=== PATIENT | male | born 1995 | race African-American/Black ===

== ENCOUNTER → 2019-04-20 | Outpatient (CLI) | payer OTHER ==
--- NOTE | 2019-04-20 15:23 | PAIN ---
DATE OF SERVICE: 04/20/2019 INITIAL CONSULTATION FOR PAIN CLINIC CHIEF COMPLAINT: Low back and right lower extremity pain. HISTORY OF PRESENT ILLNESS: This is a 23-year-old male, who presents with history of pain in the low back, his right lower extremity mostly in the anterior thigh and lateral thigh, but across the low back bilaterally. The patient reports it has been going on since about November 2018, not a result of any specific injury or action that he is aware of. He is active duty ; he also plays basketball actively, and with running and jogging. He has noticed the pain is much worse with the walking and standing, jogging. Now, he has been decreasing his activity as much as possible. Has not been playing basketball recently. He did have physical therapy, which was from December to January 2019, which did help decrease the pain by about 30-40%. The patient reports the pain is still persistent. He is still doing the stretching and strengthening exercises with his low back. The patient reports the pain is throbbing and constant across the back and shooting and radiating into the right leg. The patient rates his disability rating from 0-10, 10 being the worst, is a 2 with family home responsibilities, recreation, 1 with social activity, occupation and sexual behavior, self-care and 2 with life support activities. The patient did have a CT scan, awaiting results of that at the time of this dictation, but reported from his referring physician as having a disk bulging and spinal stenosis at L2-L3, L3-L4, and L4-L5. The patient reports no loss of motor function with significant fatigability more on the right leg than the left with active running and the basketball. The patient has tried cyclobenzaprine, is also taking ibuprofen, both of these do help, but only to about 20-30%. PAST MEDICAL HISTORY: Significant for no major medical problems or conditions. He has been in good health. PAST SURGICAL HISTORY: No previous surgeries. ALLERGIES: The patient has no known drug allergies. FAMILY HISTORY: Significant for no major medical conditions or situations that he is aware of. SOCIAL HISTORY: The patient does not drink alcohol, does not smoke. Denies any illegal, illicit, or recreational drugs, is a single. He is active duty. Lives locally in [place], [place]. REVIEW OF SYSTEMS: The patient's review of systems is positive for those items mentioned in history of present illness. All systems reviewed and otherwise negative. It is complete, full and well documented on the patient's chart. PHYSICAL EXAMINATION: VITAL SIGNS: The patient's blood pressure is 135/77, pulse 63, respirations 18, temperature 97.9 degrees Fahrenheit, height is 5 feet 10 inches, weight is 156 pounds. GENERAL: The patient is awake, alert, and oriented, appropriate, very pleasant demeanor. HEENT: Head is normocephalic, atraumatic. Extraocular movements are intact and symmetrical. Oral cavity: Mucous membranes moist and pink. Dentition is intact. NECK: Shows anterior throat supple without palpable lymphadenopathy noted. Swallow reflex symmetrical. CHEST: Shows normal on inspection. Breath sounds are clear to auscultation bilaterally. HEART: Shows S1, S2 clear. No murmurs auscultated. ABDOMEN: Soft, nontender, nondistended. No palpable organomegaly is noted. No rebound or guarding demonstrated. BACK: Shows spine grossly in the midline. Normal appearing thoracic kyphosis, cervical lordotic curvature, and thoracic kyphotic curvature. The patient shows good rotational motion of the lumbar spine, both laterally as well as extension and flexion without significant difficulty, greater than 10 degrees right and left as well as extension greater than 10 degrees, forward flexion 45 degrees without significant pain reported. Paraspinous musculature shows symmetrical on inspection, on palpation shows some mild tenderness, more on the left than the right in the low and mid lumbar distribution, but without specific asymmetry or trigger points and without radiation. EXTREMITIES: The patient's lower extremities show deep tendon reflexes 2+ in the patellar, 1+ tendo-calcaneus tendons. Motor exam is strong with 5/5 dorsiflexion, extension on the left, and 4/5 on the right, quadriceps and hamstring flexion, however, is 5/5 and equal bilaterally. Peripheral pulses are 1+ posterior tibial. No peripheral edema is noted. Lower extremities are warm and dry to touch, equal in color and appearance. The patient is able to stand, stand on his toes without difficulty or loss of balance, walks with a normal appearing gait, does not appear to favor the right or left lower extremity, not using any assistive devices to ambulate. SKIN: Shows warm and dry, good turgor. No edema. No sores, rashes or bruising throughout. IMPRESSION: 1. This is a 23-year-old male with the approximate 5-month history of pain across the low back and into the right lower extremity in a radicular fashion. 2. CT scan as reported with the disk bulging stenosis L2-L3, L3-L4, L4-L5. PLAN: Options were discussed with the patient including conservative medical managements, physical therapies, and interventional techniques. He would like to pursue interventional techniques. We discussed a lumbar epidural steroid injection using description as well as anatomical models to describe the procedure. The patient will wait for preauthorization with his insurance provider and we will have him return once authorization is made for lumbar epidural steroid injection at that time, translaminar approach at L4-L5 level. The patient in the meantime was given Medrol Dosepak with instructions, side effects to be aware of with the medication and will follow up as scheduled. OMAR GALLEGOS MD DR: TITUS/padmini JOB#: [id number] / [id number]
== END | disposition home or self-care (01) ==
LOC: PNCL 10:01
PROVIDERS: ATTEND Anesthesiology
DX: M48.061 Spinal stenosis, lumbar region without neurogenic claudication (principal)
CPT/HCPCS: G0463

== ENCOUNTER → 2019-05-01 | Outpatient (CLI) | payer OTHER ==
[~2019-05-01] MED LIST: IOHEXOL 180 MG/ML 10 ML VIAL. ONE; methylPREDNISolone ACETATE 40 MG/ML VIAL. ONE; methylPREDNISolone ACETATE 80 MG/ML VIAL. ONE
--- NOTE | 2019-05-01 11:07 | PAIN ---
DATE OF SERVICE: 05/01/2019 PROGRESS NOTE FOR PAIN CLINIC DIAGNOSES: Lumbar radiculopathy with lumbar degenerative disk disease. HISTORY OF PRESENT ILLNESS: The patient is a 23-year-old male who returns for followup status post initial evaluation and preauthorization for lumbar epidural steroid injection. The patient has obtained and now would like to proceed, still pain in the low back and in the right lower extremity, groin as well as hip and across the low back. The patient reports it is a 6 on a scale of 10 at its worst, 3 on average, 1 at its least over the past week and is a 3 today. The patient reports Medrol Dosepak only helped a very small amount. The patient reports the pain is aching and sharp in the low back, right leg and becoming more constant with activity, standing, walking, changing positions, better with sitting or lying down, generally does not awaken the patient from sleep at night. PHYSICAL EXAMINATION: VITAL SIGNS: The patient's blood pressure 131/85, pulse 63, respirations 18, temperature 97.8 degrees Fahrenheit, height is 5 feet 10 inches, weight is 194 pounds. GENERAL: The patient is awake, alert, oriented, appropriate, very pleasant demeanor. HEENT: Shows normocephalic, atraumatic. Extraocular movements are intact and symmetrical. Oral cavity: Mucous membranes moist and pink. Dentition is intact. NECK: Shows anterior throat supple. CHEST: Shows normal on inspection. Breath sounds clear to auscultation bilaterally. HEART: Shows S1, S2 clear. No murmurs auscultated. ABDOMEN: Soft, nontender, nondistended. BACK: Shows spine grossly in the midline. Normal appearing thoracic kyphosis and lumbar lordotic curvature. Lumbar paraspinous muscle shows symmetrical on inspection, with palpation shows some moderate tenderness diffusely in the low lumbar distribution only without radiation, without trigger points. The patient has good rotational motion of lumbar spine, both laterally as well as extension and flexion without significant increase in pain. EXTREMITIES: Lower extremities show deep tendon reflexes at 2+ in the patellar, 1+ tendo-calcaneus tendons. Motor exam is approximately 4 on a scale of 5 over the right ankle and 5/5 on the left. Quadriceps and hamstring flexion 5/5 and equal bilaterally. Peripheral pulses are 1+ posterior tibia. No peripheral edema is noted bilaterally. PLAN: Options were discussed with the patient. The patient's old chart was reviewed as his current medication regimen updated. Current review of systems updated today as well. We will proceed with a lumbar epidural steroid injection today with fluoroscopic guidance. Risks were again discussed including, but not limited to bleeding, infection, possibility of epidural hematoma, subsequent neurological compromise, dural puncture, headaches, spinal cord and/or nerve damage, side effects of steroid medication and poor results regarding pain control. The patient understands and wished to proceed. The patient will return to clinic in approximately 2 weeks for followup, was counseled on return appointment, activity level and side effects to be aware of. DIAGNOSES: Lumbar radiculopathy with lumbar degenerative disk disease. PROCEDURE: Lumbar epidural steroid injection, translaminar approach L4-L5 level using C-arm fluoroscopic guidance under sterile prep and drape using local anesthetic. MEDICATION INJECTED: A total of 120 mg Depo-Medrol plus 10 mL of preservative-free normal saline and 2 mL of contrast. CONDITION AT DISCHARGE: Stable. The patient tolerated the procedure well, had no complications. OMAR GALLEGOS MD DR: TITUS/padmini JOB#: [id number] / [id number]
== END ==
LOC: PNCL 08:44
PROVIDERS: ATTEND Anesthesiology
DX: M51.16 Intervertebral disc disorders with radiculopathy, lumbar region (principal)
CPT/HCPCS: 62323; J1030; J1040; Q9965